=== PATIENT | female | born 1975 | race Caucasian/White ===

== ENCOUNTER 2020-12-26 19:14 | Emergency (ER) | payer OTHER ==
[2020-12-26 19:46] VITALS: BP 151/94; PULSE 97; TEMP 98; BMI 30.7
[2020-12-26] MEDS ORDERED: LIDOCAINE PATCH REMOVAL MC SCH (22:00)
[2020-12-26] MEDS ORDERED: LIDOCAINE 5% TOPICAL PATCH TP ONE (23:34)
[2020-12-26] MEDS ORDERED: ACETAMINOPHEN 500 MG TABLET (FP) PO ONE (23:34)
[2020-12-26] MEDS ORDERED: METHOCARBAMOL 750 MG TAB PO ONE (23:35)
[2020-12-26] MEDS ORDERED: METHOCARBAMOL 500 MG TABLET ONE (23:43)
[2020-12-27] MEDS ORDERED: LIDOCAINE PATCH REMOVAL MC ONE (11:00)
== END 2020-12-27 01:48 | disposition home or self-care (01) ==
LOC: JER 19:14
DX: M54.5 Low back pain (principal); S13.4XXA Sprain of ligaments of cervical spine, initial encounter; S20.219A Contusion of unspecified front wall of thorax, initial encounter
CPT/HCPCS: 71046-TC-FY; 93005; 93010; 99284-25

== ENCOUNTER 2023-03-13 16:03 | Emergency (ER) | payer OTHER ==
[2023-03-13 16:11] VITALS: BP 122/74; PULSE 101; RESP 16; TEMP 98.5; BMI 25.8
[2023-03-13] MEDS ORDERED: ACETAMINOPHEN 500 MG TABLET (FP) PO ONE (16:45)
[2023-03-13] MEDS ORDERED: LIDOCAINE 5% TOPICAL PATCH TP ONE (16:46)
[2023-03-13] MEDS: KETOROLAC TROMETHAMINE 30 MG/1 ML VIAL IM ONE ×2 (16:57→17:15)
[2023-03-13] MEDS ORDERED: KETOROLAC TROMETHAMINE 30 MG/1 ML VIAL ONE (17:04)
[2023-03-13] MEDS ORDERED: LIDOCAINE 5% TOPICAL PATCH ONE (17:04)
[2023-03-13] MEDS ORDERED: ACETAMINOPHEN 500 MG TABLET (FP) ONE (17:05)
[2023-03-13] MEDS ORDERED: LIDOCAINE PATCH REMOVAL MC SCH (22:00)
== END 2023-03-13 18:59 | disposition home or self-care (01) ==
LOC: JERFT 16:03
DX: M54.50 Low back pain, unspecified (principal); V89.2XXA Person injured in unspecified motor-vehicle accident, traffic, initial encounter; Y93.I9 Activity, other involving external motion
CPT/HCPCS: 99283-25